=== PATIENT | male | born 1995 | race Caucasian/White ===

== ENCOUNTER 2016-10-10 13:01 | Emergency (ER) | payer OTHER ==
[~2016-10-10] VITALS: Ht 175.3 cm; Wt 66.5 kg
[2016-10-10 13:13] VITALS: TEMP 36.7; Ht 175.3 cm; Wt 66.5 kg
[2016-10-10] MEDS ORDERED: PROPARACAINE HCL 0.5% OP SOLN 15 ML BTL OP STA (14:05)
[2016-10-10 14:30] VITALS: BP 110/73; PULSE 83; O2SAT 96
--- NOTE | 2016-10-11 15:54 | EMERGENCY ROOM VISIT NOTE ---
ED Visit Note First contact with patient: 13:48 Chief Complaint: My eyes are itchy and sore. History of Present Illness: Mr. Pastor is a 21-year-old male who ambulates into the ED complaining of bilateral burning sensations of the eyes and itchy eyes. Patient reports his symptoms started approximately for 5 days ago. Since that time his pain has been constant. He reports previously during seasonal changes he does develop symptoms of allergic conjunctivitis but he normally takes over- the-counter decongestants and his symptoms are relieved in a few days; he has been taking decongestant and he denies any relief of his discomfort. Currently he describes his pain as a burning sensation. His pain is bilaterally and is not side prominent. He rates his discomfort 4/10. His pain is nonradiating. He has not identified any aggravating or alleviating factors related to the pain. Associated with the pain he does report he has had some mild tearing and with the tearing intermittent blurry vision. He denies any associated symptoms including decreased overall vision, headaches, vomiting, fevers, chills, puslike drainage, matting of the eyelids, recent trauma. He also denies any previous significant injuries, surgeries or trauma. Review of Systems: As noted above in history of present illness. 8 body systems were reviewed and found to be negative as noted above. Past Medical History: Patient denies. Current Medications: Patient denies. Allergies to Medications: Patient denies. 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 Physical Examination: Vital Signs: Date Time Temp Pulse Resp B/P (MAP) Pulse Ox O2 Delivery O2 Flow Rate FiO2 10/10/16 14:30 83 16 110/73 96 10/10/16 13:13 36.7 93 16 122/83 95 Room Air GENERAL: 21-year-old male in mild distress due to pain, nontoxic-appearing, afebrile and hemodynamically stable. NEUROLOGICAL: Awake, alert and oriented to person, place and time. Answering questions appropriately and following commands. SKIN: Warm, dry and pink. No soft tissue eruptions or trauma noted. HEENT: Atraumatic and normocephalic. No erythema or tenderness over the frontal, maxillary sinuses or the eyelids. PERRLA. EOMI without nystagmus. Sclera mildly injected and conjunctiva pink without drainage. No foreign bodies noted under the eyelids are embedded in the cornea. The anterior chamber is clear. Alcaine was used to anesthetize the ice for examination. On slit Lantus examination and staining patient had no foreign bodies or corneal abrasions. Visual acuity: Right: 20/70, Left 20/50 without correction. No drainage from naris. ED Course: Patient is assessed as noted above. Patient's medication list was reviewed. Patient was educated about today's findings and instructed on his treatment plan ; he verbalized understanding and agreement with this plan. Clinical Impression: Mild bilateral conjunctivitis. Decision-Making: Initially my differential diagnosis I considered conjunctivitis for multiple reasons, corneal abrasion and other causes. Disposition: Patient discharged home in stable condition; prior to departure he was reassessed and subjectively reported he was pain-free. Plan: Patient was encouraged to continue using his allergic eyedrops. Patient was encouraged use [id number] ibuprofen or acetaminophen as needed for belle pain. 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 Patient was encouraged return ED for worsening/uncontrolled symptoms, fevers, visual changes, purulent eye drainage, or any new/concerning symptoms.
== END 2016-10-10 14:33 | disposition home or self-care (01) ==
LOC: C.EDB 13:03 → C.EDD 14:33
DX: H10.9 Unspecified conjunctivitis (principal)

== ENCOUNTER 2016-12-20 17:44 | Emergency (ER) | payer OTHER ==
[~2016-12-20] VITALS: Ht 175.3 cm; Wt 67.4 kg
[2016-12-20 17:48] VITALS: TEMP 36.8; Ht 175.3 cm; Wt 67.4 kg
[2016-12-20] MEDS ORDERED: ALBUTEROL 0.5% NEB SOLN 2.5 MG/0.5 ML VIAL INH STA (18:02)
[2016-12-20] MEDS ORDERED: DiphenhydrAMINE HCL 50 MG/ML VIAL IV STA (18:02)
[2016-12-20] MEDS ORDERED: PROCHLORPERAZINE 5 MG/ML 2 ML VIAL IV STA (18:02)
[2016-12-20] MEDS ORDERED: KETOROLAC TROMETHAMINE 30 MG/ML VIAL IV STA (18:02)
[2016-12-20] MEDS ORDERED: MAGNESIUM SULFATE 1GM / D5W 1 GM BAG IV STA (18:02)
[2016-12-20] MEDS ORDERED: ALBUTEROL HFA 8 GM INHALER INH STA (18:02)
--- NOTE | 2016-12-20 18:04 | EMERGENCY ROOM VISIT NOTE ---
History Report prepared by Jeanmarie: Maynor Torres Under the Supervision of: Dr. Neo Will M.D. First contact with patient: 17:56 Chief Complaint: HEADACHE Stated Complaint: STATON,FEVER,NAUSEA FOR 4 DAYS History of Present Illness The patient is a 21 year old male who presents to the Emergency Room with complaints of a persistent illness that started 4 days ago. He says that he has had a headache, with some fevers, nausea, and a cough. The patient notes that this headache is not the worst headache of his life. He says that he had 2 episodes of vomiting 3 days ago, but has not vomited since then. He adds that he has recently developed a mild sore throat. The patient states that he has been taking Advil and Robitussin, and the Robitussin helps stop his coughing for a few hours. He adds that at night he wakes up shivering. He denies any abdominal pain. Source of History: patient Onset: 4 days ago Position: other (global - illness) Symptom Intensity: not worst headache of life Timing: other (persistent) Associated Symptoms: + fevers, + chills, + headache, + sorethroat, + cough, + nausea, + vomiting (has since resolved), No abdominal pain Note: No other associated symptoms noted. Review of Systems See HPI for pertinent positives & negatives. A total of 10 systems reviewed and were otherwise negative. Past Medical & Surgical Medical Problems: (1) No chronic problems Family History No pertinent family history Social History Smoking Status: Never Smoker Alcohol Use: none Drug Use: none Marital Status: single Housing Status: lives with roommate Occupation Status: [employer] student Current/Historical Medications Scheduled Doxycycline Monohydrate (Monodox), 100 MG PO BID Ondasetron Odt (Zofran Odt), 4 MG SL Q6H Scheduled PRN Guaifenesin (Robitussin), 1 DOSE PO Q12 PRN for Cough Hydrocodone W/ Homatropine (Hycodan 5/1.5MG 5 Ml), 5 ML PO HS PRN for Cough Ibuprofen (Advil), 600-800 MG PO Q6H PRN for Pain Allergies Coded Allergies: No Known Allergies (Unverified , 12/20/16) Physical Exam Vital Signs Date Time Temp Pulse Resp B/P (MAP) Pulse Ox O2 Delivery O2 Flow Rate FiO2 12/20/16 19:49 85 22 121/71 95 12/20/16 19:01 94 104/69 96 Room Air 12/20/16 18:59 67 121/61 75 116/72 94 104/69 12/20/16 18:41 100 Room Air 12/20/16 18:41 100 Room Air 12/20/16 18:36 69 12/20/16 17:48 36.8 88 18 120/83 95 Room Air Physical Exam GENERAL: Patient is a healthy-appearing well-nourished 21 year old male. HEAD: Normocephalic atraumatic EYES: Ocular movements intact pupils equal and react to light OROPHARYNX mucous membranes are moist no exudates present no erythema or edema present NECK: Supple no nuchal rigidity CHEST: Good equal expansion LUNGS: Clear and equal to auscultation CARDIAC: Normal S1 and S2 ABDOMEN: Soft nontender no guarding BACK: No CVA tenderness EXTREMITIES: No pain upon palpation normal muscle strength in all groups no clubbing cyanosis or edema NEURO: Patient is following commands and answering questions appropriately. Alert and oriented x3 Cranial Nerves 2-12 grossly intact. No signs of meningitis or encephalitis on exam. Medical Decision & Procedures ER Provider Diagnostic Interpretation: X-ray results as stated below per interpretation by me and the radiologist: SINGLE VIEW CHEST CLINICAL HISTORY: Cough and fever. FINDINGS: An AP, portable, upright chest radiograph is obtained. No prior studies are available for comparison at the time of dictation. The examination is degraded by portable technique and patient rotation. The cardiomediastinal silhouette is unremarkable. There is right basilar airspace consolidation, typical in appearance for pneumonia. The left lung appears clear. No large pleural effusion or pneumothorax is seen. The bony thorax is grossly intact. IMPRESSION: There is right basilar airspace consolidation typical in appearance for pneumonia. Radiographic follow-up to resolution is recommended. Electronically signed by: Lamine Price M.D. 12/20/2016 6:23 PM Dictated Date/Time: 12/20/2016 6:22 PM Laboratory Results 12/20/16 18:24 Red Blood Count 5.55, Mean Corpuscular Volume 83.1, Mean Corpuscular Hemoglobin 27.7, Mean Corpuscular Hemoglobin Concent 33.4, Mean Platelet Volume 9.7, Neutrophils (%) (Auto) 73.6, Lymphocytes (%) (Auto) 15.7, Monocytes (%) (Auto) 8.9, Eosinophils (%) (Auto) 1.4, Basophils (%) (Auto) 0.2, Neutrophils # (Auto) 3.74, Lymphocytes # (Auto) 0.80, Monocytes # (Auto) 0.45, Eosinophils # (Auto) 0.07, Basophils # (Auto) 0.01 12/20/16 18:24 Test 12/20/16 18:24 12/20/16 19:02 White Blood Count 5.08 K/uL (4.8-10.8) Red Blood Count 5.55 M/uL (4.7-6.1) Hemoglobin 15.4 g/dL (14.0-18.0) Hematocrit 46.1 % (42-52) Mean Corpuscular Volume 83.1 fL (80-100) Mean Corpuscular Hemoglobin 27.7 pg (25-34) Mean Corpuscular Hemoglobin Concent 33.4 g/dl (32-36) Platelet Count 137 K/uL (130-400) Mean Platelet Volume 9.7 fL (7.4-10.4) Neutrophils (%) (Auto) 73.6 % Lymphocytes (%) (Auto) 15.7 % Monocytes (%) (Auto) 8.9 % Eosinophils (%) (Auto) 1.4 % Basophils (%) (Auto) 0.2 % Neutrophils # (Auto) 3.74 K/uL (1.4-6.5) Lymphocytes # (Auto) 0.80 K/uL (1.2-3.4) Monocytes # (Auto) 0.45 K/uL (0.11-0.59) Eosinophils # (Auto) 0.07 K/uL (0-0.5) Basophils # (Auto) 0.01 K/uL (0-0.2) RDW Standard Deviation 39.6 fL (36.4-46.3) RDW Coefficient of Variation 13.1 % (11.5-14.5) Immature Granulocyte % (Auto) 0.2 % Immature Granulocyte # (Auto) 0.01 K/uL (0.00-0.02) Anion Gap 4.0 mmol/L (3-11) Est Creatinine Clear Calc Drug Dose 92.1 ml/min Estimated GFR () 98.6 Estimated GFR (Non- 85.1 BUN/Creatinine Ratio 13.0 (10-20) Calcium Level 8.8 mg/dl (8.5-10.1) Total Bilirubin 0.8 mg/dl (0.2-1) Direct Bilirubin 0.2 mg/dl (0-0.2) Aspartate Amino Transf (AST/SGOT) 20 U/L (15-37) Alanine Aminotransferase (ALT/SGPT) 27 U/L (12-78) Alkaline Phosphatase 74 U/L (45-117) Total Protein 8.2 gm/dl (6.4-8.2) Albumin 3.9 gm/dl (3.4-5.0) Thyroid Stimulating Hormone (TSH) 0.612 uIu/ml (0.300-4.500) Monoscreen NEG (NEG) Influenza Type A Antigen Neg for Influ A (NEG) Influenza Type B Antigen Neg for Influ B (NEG) Labs reviewed by ED physician. Medications Administered Medications (Trade) Dose Ordered Sig/Lacy Route Start Time Stop Time Status Last Admin Dose Admin Albuterol (Ventolin Hfa Inhaler) 2 puffs NOW STAT INH 12/20/16 18:02 12/20/16 18:10 DC 12/20/16 18:36 2 PUFFS Albuterol Sulfate (Ventolin 0.5% 2.5MG/0.5ML Neb) 2.5 mg NOW STAT INH 12/20/16 18:02 12/20/16 18:10 DC 12/20/16 18:34 2.5 MG Ketorolac Tromethamine (Toradol Inj) 30 mg NOW STAT IV 12/20/16 18:02 12/20/16 18:10 DC 12/20/16 18:38 30 MG Prochlorperazine Edisylate (Compazine Inj) 10 mg NOW STAT IV 12/20/16 18:02 12/20/16 18:10 DC 12/20/16 18:39 10 MG Diphenhydramine HCl (Benadryl Inj) 50 mg NOW STAT IV 12/20/16 18:02 12/20/16 18:10 DC 12/20/16 18:37 50 MG Magnesium Sulfate (Magnesium Sulfate) 1 gm NOW STAT IV 12/20/16 18:02 12/20/16 18:10 DC 12/20/16 18:39 1 GM Doxycycline Hyclate (Vibramycin Cap) 100 mg ONE STAT PO 12/20/16 18:39 12/20/16 18:40 DC 12/20/16 18:57 100 MG Hydrocodone Bit/ Homatropine Methylb (Hycodan Elix Homepack 5/1.5MG/ 5ML) 1 [facility] UD STAT PO 12/20/16 19:26 12/20/16 19:27 DC 12/20/16 19:48 1 [facility] ED Course 175: Past medical records reviewed. The patient was evaluated in room C9. A complete history and physical examination was performed. 1801: Ordered Magnesium Sulfate 1 gm IV, Benadryl Inj 50 mg IV, Compazine Inj 10 mg IV, Toradol Inj 30 mg IV, Ventolin 0.5% 2.5MG/0.5ML Neb 2.5 mg INH, Ventolin Hfa Inhaler 2 puffs INH. 1838: Ordered Vibramycin Cap 100 mg PO. 1917: Upon reexamination the patient is resting comfortably. I discussed results and treatment plan with the patient. He verbalizes agreement and understanding. The patient is ready for discharge. Medical Decision Differential diagnosis: Etiologies such as migraine headache, meningitis, sinusitis, CO exposure, ICH, SAH, infection, tumor, headache, sinus thrombosis, arterial dissection, as well as others were entertained. This is a 21-year-old male who presents emergency department complaining of headache. The patient has no evidence of meningitis or encephalitis on examination. He was given breathing treatments does appear to have pneumonia on chest x-ray. For this reason the patient was started on doxycycline. He was given Toradol Compazine and Benadryl. Repeat examination revealed improvement patient's symptoms. The patient does not have an elevation in his white blood cell count and I feels well enough to be discharged home. I'll continue the patient on doxycycline at home and he was given an inhaler. Patient will return if his fevers or out of control or if he is not improving. Patient was in agreement with the treatment plan. Medication Reconcilliation Current Medication List: was personally reviewed by me Blood Pressure Screening Patient's blood pressure: Normal blood pressure Impression Primary Impression: Headache Additional Impression: Pneumonia Scribe Attestation The scribe's documentation has been prepared under my direction and personally reviewed by me in its entirety. I confirm that the note above accurately reflects all work, treatment, procedures, and medical decision making performed by me. Departure Information Dispostion Home / Self-Care Prescriptions Hydrocodone W/ Homatropine (HYCODAN 5/1.5MG 5 ML) 1 Syp Syp 5 ML PO HS Y for Cough, #120 ML Prov: Neo Will MD 12/20/16 Ondasetron Odt (ZOFRAN ODT) 4 Mg Tab 4 MG SL Q6H for Nausea, #6 TAB Prov: Neo Will MD 12/20/16 Doxycycline Monohydrate (Monodox) 100 Mg Cap 100 MG PO BID for 10 Days, #20 CAP Prov: Neo Will MD 12/20/16 Referrals No Doctor, Assigned (PCP) [facility] Services Forms HOME CARE DOCUMENTATION FORM, IMPORTANT VISIT INFORMATION, School Instructions, Work Instructions Patient Instructions ED Fever Control, ED Headache Migraine, ED Pneumonia Adult, Fever - [facility], Headache Pain, My [facility] Additional Instructions Use inhaler twice every 6 hours Take 600 mg Ibuprofen every 6 hours Take 1000 mg Tylenol every 6 hours Increase fluids next 48 hours Take food with doxycycline You have been examined and treated today on an emergency basis only. This is not a substitute for, or an effort to provide, complete comprehensive medical care. It is impossible to recognize and treat all injuries or illnesses in a single emergency department visit. It is therefore important that you follow up closely with [facility]. Call as soon as possible for an appointment. Thank you for your time and consideration. I look forward to speaking with you again soon. Please don't hesitate to call us if you have any questions. Problem Qualifiers Primary Impression: Headache Headache type: unspecified Headache chronicity pattern: unspecified pattern Intractability: not intractable Qualified Codes: R51 - Headache Additional Impression: Pneumonia Pneumonia type: due to unspecified organism Laterality: unspecified laterality Lung location: unspecified part of lung Qualified Codes: J18.9 - Pneumonia, unspecified organism
[2016-12-20] MEDS ORDERED: IBUP-1050 PO (18:15)
[2016-12-20] MEDS ORDERED: RBTUDL5 PO (18:15)
--- NOTE | 2016-12-20 18:25 | DIAGNOSTIC IMAGING REPORT ---
SINGLE VIEW CHEST CLINICAL HISTORY: Cough and fever. FINDINGS: An AP, portable, upright chest radiograph is obtained. No prior studies are available for comparison at the time of dictation. The examination is degraded by portable technique and patient rotation. The cardiomediastinal silhouette is unremarkable. There is right basilar airspace consolidation, typical in appearance for pneumonia. The left lung appears clear. No large pleural effusion or pneumothorax is seen. The bony thorax is grossly intact. IMPRESSION: There is right basilar airspace consolidation typical in appearance for pneumonia. Radiographic follow-up to resolution is recommended. Electronically signed by: Lamine Price M.D. 12/20/2016 6:23 PM Dictated Date/Time: 12/20/2016 6:22 PM
[2016-12-20] MEDS ORDERED: DOXYCYCLINE HYCLATE 100 MG CAP PO STA (18:39)
[2016-12-20 18:41] VITALS: O2SAT 100
[2016-12-20 18:42] LABS: BASO % 0.2 %; BASO ABS # 0.01 K/uL (0-0.2); COMPLETE YES; EOS % 1.4 %; HEMATOCRIT 46.1 % (42-52); IG% 0.2 %; LYMPH % 15.7 %; MEAN CELL VOLUME 83.1 fL (80-100); MEAN CORPUSCULAR HEMOGLOBIN 27.7 pg (25-34); MEAN CORPUSCULAR HGB CONC 33.4 g/dl (32-36); MEAN PLATELET VOLUME 9.7 fL (7.4-10.4); MONO % 8.9 %; NEUT % 73.6 %; PLATELET COUNT 137 K/uL (130-400); RED BLOOD COUNT 5.55 M/uL (4.7-6.1); WHITE BLOOD COUNT 5.08 K/uL (4.8-10.8)
[2016-12-20 19:02] LABS: CALCIUM 8.8 mg/dl (8.5-10.1); CREATININE 1.21 mg/dl (0.60-1.40); POTASSIUM 3.8 mmol/L (3.5-5.1)
[2016-12-20 19:13] LABS: THYROID STIMULATING HORMONE 0.612 uIu/ml (0.300-4.500)
[2016-12-20] MEDS ORDERED: DOXY100C76 PO (19:23)
[2016-12-20] MEDS ORDERED: ONDA4TAB10 SL (19:23)
[2016-12-20] MEDS ORDERED: HYDR5SYP11 PO (19:23)
[2016-12-20] MEDS ORDERED: HYCODAN 60ML BOTTLE HOMEPACK PO STA (19:26)
[2016-12-20 19:49] VITALS: BP 121/71; PULSE 85; O2SAT 95
[2016-12-21 00:31] LABS: INFLUENZA A PCR Neg for Influ A (NEG); INFLUENZA B PCR Neg for Influ B (NEG)
[2016-12-22 15:38] LABS: EBV EARLY ANTIGEN AB < 9.00 U/ML; EPSTEIN BARR VIR CAPSID IGG < 18.00 U/ML
== END 2016-12-20 19:49 | disposition home or self-care (01) ==
LOC: C.EDB 17:44 → C.EDC 19:49
DX: R51 Headache (principal); J18.9 Pneumonia, unspecified organism